=== PATIENT | male | born 1995 | race Two or more races ===

== ENCOUNTER 2021-03-22 09:31 | Emergency (ER) | payer MEDICARE ==
[~2021-03-22] VITALS: Ht 182.9 cm; Wt 68.0 kg
--- NOTE | 2021-03-22 09:31 | NUR ---
PT [facility] FROM [facility] C/O MIDSTERNAL CHEST PAIN. PT IS AAOX4, NOT IN RESPIRATORY DISTRESS, HOOKED TO [employer], KEPT RESTED AND COMFORTABLE. WILL CONTINUE TO MONITOR.
--- NOTE | 2021-03-22 09:50 | NUR ---
AT BEDSIDE FOR EVAL.
--- NOTE | 2021-03-22 10:00 | NUR ---
PTEE PELAEZ AT BEDSIDE FOR EKG.
--- NOTE | 2021-03-22 10:08 | NUR ---
CALLED [facility] FOR TRANSPORT TO [facility]. ETA 60-75 MINUTES.
--- NOTE | 2021-03-22 10:50 | NUR ---
[facility] [place].
[2021-03-22 11:18] VITALS: BP 127/78
--- NOTE | 2021-03-22 11:18 | NUR ---
REPORT GIVEN TO EMT FOR PT TRANSFER TO [facility].
== END 2021-03-22 11:21 ==
LOC: ER 09:36
DX: F31.9 Bipolar disorder, unspecified (principal)